=== PATIENT | female | born 1960 | race African-American/Black ===

== ENCOUNTER 2018-06-20 03:45 | Inpatient (IN) | payer OTHER ==
[~2018-06-20] VITALS: Ht 170.2 cm; Wt 156.9 kg
[2018-06-20] VITALS (7 sets, daily range): BP systolic 123–158; BP diastolic 38–82
--- NOTE | ~2018-06-20 | 2DMMODE ---
[facility] [address] [address] 2 D/M-MODE ECHOCARDIOGRAM Name: AINSLEYEMILIANO STEPHANIE Room #: 356-P ADM IN M.R.#: [id number] Admission: 06/20/18 Attend Phys: Tayo Webb MD Discharge: Date of : 58 Date of Service: 06/21/18 1142 Report #: [id number] THIS REPORT FOR: //name// APPROVED REPORT Study performed: 06/21/2018 10:18:27 EXAM: Comprehensive 2D, Doppler, and color-flow Echocardiogram Patient Location: Echo lab Room #: [facility] Status: routine BSA: 2.55 HR: 100 bpm BP: 147/51 mmHg Rhythm: Tachycardia Other Information Study Quality: Adequate Technically limited study due to morbid obesity. Indications Short of breath, leg edema, chest tightness. Rule out CHF. 2D Dimensions RVDd: 35.58 mm LVEF(%): 72.66 (>50%) IVSd: 10.49 (7-11mm) LVOT Diam: 21.02 (18-24mm) LVDd: 43.98 mm PWd: 10.35 (7-11mm) Ascending Ao: 27.89 (22-36mm) LVDs: 25.72 (25-40mm) Aortic Root: 31.92 mm Lama's LVEF: 72.66 % Volumes Left Atrial Volume (Systole) Single Plane 4CH: 47.14 mL Single Plane 2CH: 53.03 mL Aortic Valve AoV Peak Clovis.: 1.96 m/s AO Peak Gr.: 15.31 mmHg LVOT Max P.55 mmHg LVOT Max V: 1.62 m/s DARRON Vmax: 2.88 cm2 Mitral Valve E/A Ratio: 1.3 MV Decel. Time: 241.62 ms [facility] [employer] [place] [address] 2 D/M-MODE ECHOCARDIOGRAM Name: EMILIANO SCHMITZ Room #: 356-P [facility] IN M.R.#: [id number] Admission: 06/20/18 Attend Phys: Tayo Webb MD Discharge: Date of : 58 Date of Service: 06/21/18 1142 Report #: [id number] E Max Clovis.: 0.98 m/s MV A Clovis.: 0.76 m/s MV PHT: 70.07 ms IVRT: 58.82 ms Pulmonary Valve PV Peak Clovis.: 1.36 m/s PV Peak Gr.: 7.37 mmHg Pulmonary Vein P Vein S: 0.76 m/s P Vein A: 0.38 m/s P Vein D: 0.56 m/s P Vein A Dur.: 93.4 msec P Vein S/D Ratio: 1.36 Tricuspid Valve RAP Estimate: 5.00 mmHg Left Ventricle The left ventricle is normal size. There is normal LV segmental wall motion. There is normal left ventricular wall thickness. Left ventricular systolic function is hyperdynamic. LVEF is 65-70%. Moderate diastolic dysfunction is present (pseudonormal filling). Right Ventricle The right ventricle is normal size. The right ventricular systolic function is normal. Atria The left atrium size is normal. The right atrium size is normal. Aortic Valve Aortic valve is grossly normal in structure. No aortic regurgitation is present. There is no aortic valvular stenosis. Mitral Valve The mitral valve is normal in structure. There is no mitral valve regurgitation noted. No evidence of mitral valve stenosis. Tricuspid Valve The tricuspid valve is normal in structure. There is no tricuspid valve regurgitation noted. Unable to assess PA pressure. Pulmonic Valve Pulmonic valve is not well visualized. [address] [address] 2 D/M-MODE ECHOCARDIOGRAM Name: EMILIANO SCHMITZ Room #: 356-P [facility] IN ..#: [id number] Admission: 06/20/18 Attend Phys: Tayo Webb MD Discharge: Date of : 58 Date of Service: 06/21/18 1142 Report #: [id number] Great Vessels The aortic root is normal in size. The ascending aorta is normal in size. IVC is normal in size and collapses >50% with inspiration. Pericardium There is no pericardial effusion. <Conclusion> The left ventricle is normal size. There is normal left ventricular wall thickness. Left ventricular systolic function is hyperdynamic. Moderate diastolic dysfunction is present (pseudonormal filling). The right ventricle is normal size. The left atrium size is normal. There is no aortic valvular stenosis. There is no mitral valve regurgitation noted. There is no pericardial effusion. <ELECTRONICALLY SIGNED> By: Yeison Hay MD 06/21/18 1142 1142 1142 Yeison Hay MD /INF
[~2018-06-20 03:45] MED LIST: ADVAIR 100-501 EACH; ADVAIR HFA 1112 UNIT INH; ADVAIR HFA 230M12 GM INH; ADVAIR HFA115 MCG/21 INH; ALBUTEROL INH INH; ALBUTEROL2.5 MG/0.5; ALKA-SELTZER O1 EACH PO; AVELOX 400 MG400 MG PO; CLEOCIN HCL300 MG PO; COLACE100 MG PO; DOXYCYCLINE 10100 M1 PO; GLYBURIDE 5 MG T5 M1 PO; HYDROCODON-ACE1 EAC7; HYDROCODON-ACE1 EAC7 PO; KEFLEX500 MG PO; LEVAQUIN 500 M500 M2 PO; LEVEMIR; LOTRIMIN30 GM; MAXZIDE-25 MG1 EACH PO; MEDROLDOSEPACK PO; MUCINEX TA600 MG/TA1 PO; NOHOMEMEDICATIONS; NORCO 5-325 TA1 EACH PO; OMEPRAZOLE 20 M20 M1 PO; PANTOPRAZOLE SO40 M1; PREDNISONE 10 M10 M1; PREDNISONE 10 M10 MG PO; PREDNISONE 20 M20 M1; PREDNISONE 5 MG5 M1 PO; PRILOSEC 20 MG20 MG PO; PROAIR HFA8.5 GM INH; PROTONIX40 M2; PROVENTIL HFA6.7 G1 INH; VENTOLIN HFA 1818 GM INH; ZPAK PO; ZYVOX600 MG PO
[2018-06-20 06:29] LABS: ABSOLUTE NEUTROPHILS 5.2 thou/uL (1.4-8.2); BASOPHILS 0.8 % (0.0-2.0); HEMATOCRIT 41.3 % (37.0-47.0); HEMOGLOBIN 13.8 gm/dL (12.0-15.0); LYMPHOCYTES 22.7 % (24.0-44.0); MCH 31.8 pg (26.0-34.0); MCHC 33.3 g/dL (28.0-37.0); MCV 95.3 fL (80.0-100.0); MONOCYTES 7.4 % (1.0-8.0); PLATELET COUNT 211 thou/uL (150-400); POLYS 60.1 % (36.0-66.0); RBC 4.34 mil/uL (4.20-5.00); RDW 12.8 % (10.5-14.5); WBC 8.6 thou/uL (4.0-11.0)
[2018-06-20 06:31] LABS: POTASSIUM 4.4 mmol/L (3.5-5.1)
[2018-06-21 00:15] VITALS: BP 164/81
[2018-06-21 05:19] VITALS: BP 152/59
[2018-06-21 05:52] LABS: HEMOGLOBIN 13.7 gm/dL (12.0-15.0); MCH 31.9 pg (26.0-34.0); MCHC 33.3 g/dL (28.0-37.0); MCV 95.7 fL (80.0-100.0); RBC 4.28 mil/uL (4.20-5.00); RDW 12.8 % (10.5-14.5); WBC 12.4 thou/uL (4.0-11.0)
[2018-06-21 06:13] LABS: CALCIUM 8.9 mg/dL (8.5-10.1); CREATININE 1.2 mg/dL (0.6-1.0); POTASSIUM 4.7 mmol/L (3.5-5.1)
[2018-06-21 08:10] VITALS: BP 147/51
[2018-06-21 14:48] VITALS: BP 147/51
[2018-06-21 15:45] VITALS: BP 123/53
[2018-06-21 19:40] VITALS: BP 131/62
[2018-06-22 06:03] LABS: BASOPHILS 0.2 % (0.0-2.0); HEMATOCRIT 39.8 % (37.0-47.0); HEMOGLOBIN 13.1 gm/dL (12.0-15.0); LYMPHOCYTES 5.2 % (24.0-44.0); MCH 31.5 pg (26.0-34.0); MCV 95.6 fL (80.0-100.0); MONOCYTES 3.7 % (1.0-8.0); PLATELET COUNT 249 thou/uL (150-400); POLYS 90.9 % (36.0-66.0); RBC 4.16 mil/uL (4.20-5.00); RDW 12.9 % (10.5-14.5); WBC 13.2 thou/uL (4.0-11.0)
[2018-06-22 06:14] LABS: CALCIUM 8.8 mg/dL (8.5-10.1); CREATININE 1.3 mg/dL (0.6-1.0); POTASSIUM 4.8 mmol/L (3.5-5.1)
[2018-06-22 08:03] VITALS: BP 123/50
[2018-06-22] MEDS ORDERED: IPRAT-ALBUT 0.5-3 ML INH (10:02)
[2018-06-22] MEDS ORDERED: ALBUTEROL2.5 MG/0.5 INH (10:02)
[2018-06-22] MEDS ORDERED: PREDNISONE 10 M10 MG PO (10:07)
[2018-06-22 10:51] VITALS: BP 147/51
[2018-06-22 16:26] VITALS: BP 147/51
== END 2018-06-22 16:20 | disposition home or self-care (01) | DRG 189 ==
LOC: ER 03:45 → 3W 06:24 → EROBS 06:24 → 3W 07:58 → ENTRNSPT 06-22 16:07 → 3W 06-22 16:20
PROVIDERS: Emergency Medicine; Hospitalist
DX: J96.21 Acute and chronic respiratory failure with hypoxia (principal); I50.30 Unspecified diastolic (congestive) heart failure; J45.901 Unspecified asthma with (acute) exacerbation; R73.03 Prediabetes; Z90.721 Acquired absence of ovaries, unilateral; Z91.048 Other nonmedicinal substance allergy status; Z79.899 Other long term (current) drug therapy; Z99.81 Dependence on supplemental oxygen
CPT/HCPCS: 10779